=== PATIENT | female | born 1955 | race Caucasian/White ===

== ENCOUNTER 2018-05-23 09:21 | Outpatient (CLI) | payer OTHER ==
--- NOTE | 2018-05-23 10:53 | BD ---
BONE DENSITOMETRY USING DEXA: HISTORY: Postmenopausal screening for osteoporosis. FINDINGS: Lumbar Spine: BMD (g/cm2) L1 1.072 T-Score: 0.7 Z-Score: 2.2 L2 1.110 T-Score: 0.7 Z-Score: 2.4 L3 1.090 T-Score: 0.1 Z-Score: 1.8 L4 1.058 T-Score: 0.0 Z-Score: 1.7 L1-L4 1.082 T-Score: 0.3 Z-Score: 2.0 Femoral Neck: 0.714 T-Score: -1.2 Z-Score: 0.2 Total Femur: 0.887 T-Score: -0.5 Z-Score: 0.7 The 10-year fracture risk for a major osteoporotic fracture is 16% and for a hip fracture is 0.7%. Impression: Osteopenia. POS: OFF
== END 2018-05-23 09:22 | disposition home or self-care (01) ==
LOC: BICMAMMO 09:21
PROVIDERS: ATTEND Obstetrics & Gynecology
DX: Z13.820 Encounter for screening for osteoporosis (principal); M85.80 Other specified disorders of bone density and structure, unspecified site
CPT/HCPCS: 77080

== ENCOUNTER 2018-06-14 09:52 | Outpatient (CLI) | payer OTHER | END 2018-06-14 09:53 | disposition home or self-care (01) | LOC: BICMAMMO 09:52 | PROVIDERS: ATTEND Obstetrics & Gynecology | DX: N63.20 Unspecified lump in the left breast, unspecified quadrant (principal); N64.89 Other specified disorders of breast | CPT/HCPCS: G0279 ==